=== PATIENT | female | born 1960 | race Two or more races ===

== ENCOUNTER 2018-10-27 00:14 | Inpatient (IN) | payer MEDICARE, OTHER ==
[~2018-10-27] VITALS: Ht 165.1 cm; Wt 86.2 kg
[2018-10-27 02:45] VITALS: BP 103/71
--- NOTE | 2018-10-27 02:45 | NUR ---
GPS ADMISSION NOTE, RECEIVED PATIENT FROM [facility]. PATIENT ARRIVED ON THIS UNIT AT 0245 VIA STRETCHER WITH 2 EMT ESCORTS. PATIENT ADMITTED ON A 5150 HOLD FOR DTS. PER HOLD OFFICERS RESPONDED TO A RADIO CALL OF A OVERDOSE. PATIENT STATED SHE TOOK 14 PILLS OF LUNESTA 30 MG TABS, SAID SHE IS TIRED OF HER LIFE, AND SHE WROTE A NOTE STATING I LOVE YOU AND F[employer]WELL. PATIENT IS PATIENT WAS UNABLE TO CONTRACT FOR SAFETY AT THAT TIME. THE 5150 WAS REVIEWED AND THE DOCUMENTATION IN THE 5150 HOLD APPEARS TO REFLECT THE PRESENTATION OF THE PATIENT. UPON FACE TO FACE ASSESSMENT PATIENT IS NOTED TO BEING ANXIOUS, DISHEVELED, DISORGANIZED, DEMANDING, COOPERATIVE, AND NEEDS REDIRECTION. PATIENT IS CURRENTLY LYING IN BED AWAKE, HAS NO S/S OR COMPLAINTS OF PAIN. PATIENT IS DISPLAYING NO S/S OF APPARENT DISTRESS. PATIENT BREATHING IS UNLABORED WITH EQUAL RISE AND FALL OF THE CHEST. PATIENT IS ALERT AND ORIENTATED X 4 ON ROOM AIR. PATIENT ASSISTED WITH TURING AND REPOSITIONING Q2HR AND PRN FOR COMFORT AND CIRCULATION. PATIENT HAS NO NEEDS AT THIS TIME. PATIENT DENIES SUICIDE IDEATIONS AND HOMICIDAL IDEATIONS AT THIS TIME. PATIENT ADVISED OF HER HOLD AND PATIENT RIGHTS BOOKLET GIVEN. PATIENT IS UNDER THE PSYCHIATRIC CARE OF DR. HERNANDEZ AND THE MEDICAL CARE OF DR PEMBERTON. PATIENT BELONGINGS WERE INVENTORIED AND CHECKED FOR CONTRABAND. ALL CONTRABAND REMOVED AND STORED IN PATIENT HALLWAY LOCKER. PATIENT ADVANCED DIRECTIVES PREFERENCE, IMMUNIZATIONS QUESTIONER, NECESSARY PAPERWORK COMPLETED. PATIENT REFUSED SKIN ASSESSMENT. PATIENT ORIENTATED TO ROOM, FLOOR, AND STAFF WITH ALL QUESTIONS ANSWERED. PATIENT EDUCATED ON THE USE OF THE CALL SKINENR. PATIENT BED SIDE RAILS ARE UP X 2 FOR SAFETY. PATIENT BED IS LOCKED, LOW AND I WILL CONTINUE TO MONITOR THIS PATIENT Q 15 MIN WITH THE HELP OF STAFF TO MAINTAIN SAFETY.
[2018-10-27] MEDS ORDERED: MAG HYDROX/AL HYDROX/SIMETH 30 ML UDC PO PRN (03:00)
[2018-10-27] MEDS ORDERED: TEMAZEPAM 7.5 MG CAPSULE PO PRN (03:00)
[2018-10-27] MEDS ORDERED: MAGNESIUM HYDROXIDE 30 ML UDC PO PRN (03:00)
[2018-10-27] MEDS ORDERED: ASCO250T6 PO (03:08)
[2018-10-27] MEDS ORDERED: CYAN100096 PO (03:08)
[2018-10-27] MEDS ORDERED: ATOR20TA PO (03:08)
[2018-10-27] MEDS ORDERED: DICL100G16 TP (03:08)
[2018-10-27] MEDS ORDERED: CHOL20004 PO (03:08)
[2018-10-27] MEDS ORDERED: EPIN0.3P3 IJ (03:08)
[2018-10-27] MEDS ORDERED: D-AM10TA2 PO (03:08)
[2018-10-27] MEDS ORDERED: ESZO3TAB27 PO (03:17)
[2018-10-27] MEDS ORDERED: LINA145C PO (03:17)
[2018-10-27] MEDS ORDERED: MEMA10TA PO (03:17)
[2018-10-27] MEDS ORDERED: MULT-213 PO (03:17)
[2018-10-27] MEDS ORDERED: IBUP-1957 PO (03:17)
[2018-10-27] MEDS ORDERED: MELA1TAB9 PO (03:17)
[2018-10-27] MEDS ORDERED: GABA-534 PO (03:17)
[2018-10-27] MEDS ORDERED: MORP15TA PO (03:17)
[2018-10-27] MEDS ORDERED: LAMO150T PO (03:17)
[2018-10-27] MEDS ORDERED: VORT10TA PO (03:22)
[2018-10-27] MEDS ORDERED: TRAZ-182 PO (03:22)
[2018-10-27] MEDS: LORAZEPAM 0.5 MG TABLET PO PRN ×2 (03:49→09:57)
--- NOTE | 2018-10-27 03:49 | NUR ---
GPS RN NOTE, PATIENT HAS A COMPLAINT OF FEELING ANXIOUS AND IS REQUESTING ATIVAN AT THIS TIME. PATIENT VITAL SIGNS ARE STABLE. GAVE ATIVAN 0.5 MG PO Q6HR PRN ORDERED. WILL REASSESS FOR ANXIETY AND I WILL CONTINUE TO MONITOR THIS PATIENT.
--- NOTE | 2018-10-27 03:53 | NUR ---
GPS RN NOTE, PATIENT HAS A COMPLAINT OF INDIGESTION AND IS REQUESTING MAALOX AT THIS TIME. PATIENT VITAL SIGNS ARE STABLE. GAVE MAALOX 30 ML PO Q4HR PRN ORDERED. WILL CONTINUE TO MONITOR.
[2018-10-27] MEDS ORDERED: IBUPROFEN 800 MG TABLET PO PRN (04:00)
[2018-10-27] MEDS: ACETAMINOPHEN 325 MG TABLET PO PRN ×4 (07:44→23:57)
--- NOTE | 2018-10-27 07:45 | NUR ---
GPS/RN TYLENOL 650 MG WAS GIVEN FOR PAIN REQUESTED
[2018-10-27 08:00] VITALS: BP 115/77
[2018-10-27] MEDS: CHOLECALCIFEROL 1,000 UNIT TABLET (VIT D3) PO SCH (09:00)
[2018-10-27] MEDS: NICOTINE PATCH (21MG) 21 MG PATCH.TD24 TD SCH (09:00)
[2018-10-27] MEDS: MULTIVIT W/MINERALS 1 TAB TABLET PO SCH (09:00)
[2018-10-27] MEDS: ASCORBIC ACID 500 MG TABLET PO SCH ×2 (09:00→17:00)
[2018-10-27] MEDS: CYANOCOBALAMIN 500 MCG TABLET PO SCH (09:00)
--- NOTE | 2018-10-27 09:56 | NUR ---
GPS/RN PT WAS DEMANDING HER HOME MEDS, EXPLAINED THAT MEDICAL DOCTOR GOING TO ASSESS AND TO REVIEW THE HOME MEDICATION LIST. PT BECOME IRRITABLE AND ACCUSATORY TOWARD NOTE KEEPER OF THE NOTE AND REFUSED TO TAKE AM MEDICATIONS. AM MEDS WERE WASTED THEY WERE OUT OF PACKAGING ALREADY. REPORT WAS MADE TO CHARGE NURSE WHO REASSIGNED THE PT TO KOURTNEY SALDIVAR
[2018-10-27] MEDS: MEMANTINE HCL 5 MG TABLET PO SCH ×2 (09:57→16:56)
[2018-10-27] MEDS: GABAPENTIN 300 MG CAPSULE PO SCH (09:57)
[2018-10-27] MEDS: ATORVASTATIN 10 MG TABLET PO SCH (09:57)
--- NOTE | 2018-10-27 10:02 | NUR ---
RN NOTE: ATIVAN PRN WAS GIVEN AT 10:00 DUE TO AGITATION
--- NOTE | 2018-10-27 12:04 | NUR ---
RN NOTE: PRN TYLENOL WAS GIVEN D/T HEADACHE. ALSO, PATIENT STATES SHE HAS BEEN CONSTIPATED X2 DAYS. TOOK MOM 10/26/18 AND FELT SICK. WILL ASK MD FOR ANOTHER PRN FOR CONSTIPATION. PRUNE JUICE GIVEN. WILL RE-ASSESS.
[2018-10-27] MEDS ORDERED: SENNOSIDES 8.6 MG TABLET PO ONE (13:00)
[2018-10-27] MEDS ORDERED: LORAZEPAM 1 MG TABLET PO PRN (15:00)
[2018-10-27 16:10] VITALS: BP 150/85
[2018-10-27] MEDS: LORAZEPAM 1 MG TABLET PO SCH ×2 (16:57→21:16)
--- NOTE | 2018-10-27 18:34 | NUR ---
RN NOTE: PATIENT STILL C/O HEADACHE. PRN TYLENOL GIVEN
[2018-10-27 20:00] VITALS: BP 113/74
[2018-10-27] MEDS: IBUPROFEN 400 MG TABLET PO PRN (20:43)
--- NOTE | 2018-10-27 20:43 | NUR ---
GPS RN NOTES: PATIENT COMPLAINED TO NURSE THAT SHE IS HAVING PAINS SHE HAS FIBROMYALGIA. SHE REQUESTED TO MORPHINE SULFATE 15MG TAB PO FOR SIAD PAIN. NURSE RELAYED PATIENT'S COMPLAINS TO LY PEMBERTON PATIENT ACCESS REPRESENTATIVE FOR [facility]- NOT ORDERED AT THIS TIME, PER LY, FIBROMYALGIA IS NOT TREATED WITH NARCOTICS, AND THAT MOTRIN THAT WAS PREVIOUSLY ORDERED SHOULD BE GIVEN INSTEAD. EXPLAINED TO PATIENT THE DOCTOR'S RESPONSE. WILL MONITOR PATIENT'S PAIN STATUS.
[2018-10-27] MEDS: SENNOSIDES 8.6 MG TABLET PO SCH (21:16)
[2018-10-27] MEDS: LamoTRIgine 25 MG TABLET PO SCH (21:17)
[2018-10-28] MEDS: IBUPROFEN 400 MG TABLET PO PRN ×3 (02:43→17:16)
--- NOTE | 2018-10-28 03:19 | NUR ---
GPS RN NOTE, PATIENT HAS COMPLAINT OF BILATERAL CALF PAIN AND LOWER BACK PAIN AT 10 OUT 10 ON THE PAIN SCALE AND IS REQUESTING MEDICATION AT THIS TIME. PAGED [facility] AND INFORMED LY JON OF MY FINDINGS. [facility] A 5% LIDOCAINE PATCH TP 12HOURS ON AND 12 HOURS OFF, TO BE APPLIED TO AFFECTED AREA. [facility] ALSO ORDERED NAPROXEN 375 MG PO BID. ALL ORDERS NOTED AND CARRIED OUT. WILL CONTINUE TO MONITOR THIS PATIENT.
[2018-10-28] MEDS: LIDOCAINE 5% (PATCH) 1 EA PATCH TP SCH (03:39)
[2018-10-28] MEDS: ACETAMINOPHEN 325 MG TABLET PO PRN ×2 (06:34→19:53)
[2018-10-28 07:02] LABS: BASOPHILS % (AUTO) 0.7 % (0.0-2.0); EOSINOPHILS % (AUTO) 2.3 % (0.0-6.0); HEMATOCRIT 37 % (33-45); HEMOGLOBIN 12.3 g/dL (11.5-14.8); LYMPHOCYTES # (AUTO) 1.4 /CMM (0.8-4.8); LYMPHOCYTES % (AUTO) 23.8 % (20.0-44.0); MEAN CORPUSCULAR HGB CONC 33 g/dl (31.0-36.0); MEAN CORPUSCULAR VOLUME 80 fL (82-100); MONOCYTES # (AUTO) 0.4 /CMM (0.1-1.30); MONOCYTES % (AUTO) 7.4 % (2.0-12.0); NEUTROPHILS # (AUTO) 3.8 /CMM (1.8-8.9); NEUTROPHILS % (AUTO) 65.8 % (43.0-81.0); PLATELET COUNT (AUTO) 195 /CMM (150-450); RED BLOOD CELL COUNT(AUTO) 4.69 MIL/uL (4.0-5.2); WHITE BLOOD COUNT (AUTO) 5.8 K/uL (4.3-11.0)
[2018-10-28 07:35] LABS: ALBUMIN 3.4 g/dL (3.4-5.0); BILIRUBIN,TOTAL 0.3 mg/dL (0.2-1.0); CALCIUM, SERUM 8.7 mg/dL (8.5-10.1); CREATININE 0.8 mg/dL (0.6-1.3); POTASSIUM 3.7 mmol/L (3.5-5.1)
[2018-10-28 07:37] LABS: CHOLESTEROL 99 mg/dL (<200); HDL CHOLESTEROL 44 mg/dL (40-60); LDL 44 mg/dL (0-99); TRIGLYCERIDES 55 mg/dL (30-150)
[2018-10-28 08:00] VITALS: BP 133/69
[2018-10-28] MEDS: DICLOFENAC SODIUM TP SCH ×4 (09:00→19:22)
[2018-10-28] MEDS: CHOLECALCIFEROL 1,000 UNIT TABLET (VIT D3) PO SCH (09:33)
[2018-10-28] MEDS: VENLAFAXINE 25 MG TABLET PO SCH (09:33)
[2018-10-28] MEDS: GABAPENTIN 300 MG CAPSULE PO SCH (09:33)
[2018-10-28] MEDS: CYANOCOBALAMIN 500 MCG TABLET PO SCH (09:34)
[2018-10-28] MEDS: MEMANTINE HCL 5 MG TABLET PO SCH ×2 (09:34→17:07)
[2018-10-28] MEDS: MULTIVIT W/MINERALS 1 TAB TABLET PO SCH (09:34)
[2018-10-28] MEDS: ASCORBIC ACID 500 MG TABLET PO SCH ×2 (09:34→17:07)
[2018-10-28] MEDS: ATORVASTATIN 10 MG TABLET PO SCH (09:35)
[2018-10-28] MEDS: LORAZEPAM 1 MG TABLET PO SCH ×3 (09:40→21:15)
[2018-10-28] MEDS: NICOTINE PATCH (21MG) 21 MG PATCH.TD24 TD SCH (09:40)
[2018-10-28] MEDS: NAPROXEN 375 MG TABLET.DR PO SCH ×2 (09:41→17:07)
--- NOTE | 2018-10-28 11:22 | NUR ---
Group Note: SW encouraged pt to attend group therapy on 10/28/18 at 9:30 discussing anger management for when they are in the hospital and for once they are discharged but pt unable to attend.
--- NOTE | 2018-10-28 12:05 | NUR ---
PASCALE called the pts , Caitlyn ([phone]) who stated that he was currently parking his car at [facility] because he was coming to visit the pt. PASCALE stated that she would discuss the pts discharge plan with him in person due to his preference.
--- NOTE | 2018-10-28 12:30 | NUR ---
PASCALE met with the pts , Caitlyn ([phone]), who informed her about all of the events leading up to this hospitalization. He stated that it was a misunderstanding and completely verified that the pts version of events were true. PASCALE went over the treatment plan and the initial discharge plan. PASCALE informed him that the pt would be discharged the following day per the pts psychiatrist, Dr. Serna.
[2018-10-28] MEDS ORDERED: DEXTROAMPHETAMINE 10 MG PO SCH (13:00)
--- NOTE | 2018-10-28 15:50 | NUR ---
Initial Discharge Plan: Pt currently resides in her home with her family located at [address] [place] [address], [facility] [address], [place] [address]; ([phone]). Per pt, she would like to return to her home and continue her appointments with her provider. SW will work with the pt and the MD regarding appropriate discharge planning. SW will form a safe and proper discharge.
[2018-10-28 16:00] VITALS: BP_SYST 112; BP_SYST 128; BP_DIAS 73; BP_DIAS 78
[2018-10-28] MEDS: LINZESS 290 MCG PO SCH (17:06)
[2018-10-28 19:35] VITALS: BP 116/66
[2018-10-28] MEDS: TRAZODONE 50 MG TABLET PO SCH ×2 (21:14→22:00)
[2018-10-28] MEDS: LamoTRIgine 25 MG TABLET PO SCH (21:15)
[2018-10-28] MEDS: SENNOSIDES 8.6 MG TABLET PO SCH (21:15)
[2018-10-29] MEDS: LIDOCAINE 5% (PATCH) 1 EA PATCH TP SCH (03:30)
[2018-10-29 08:00] VITALS: BP 127/66
[2018-10-29] MEDS: NICOTINE PATCH (21MG) 21 MG PATCH.TD24 TD SCH (08:27)
[2018-10-29] MEDS: VENLAFAXINE 25 MG TABLET PO SCH (08:27)
[2018-10-29] MEDS: ATORVASTATIN 10 MG TABLET PO SCH (08:28)
[2018-10-29] MEDS: LORAZEPAM 1 MG TABLET PO SCH (08:29)
[2018-10-29] MEDS: GABAPENTIN 300 MG CAPSULE PO SCH (08:29)
[2018-10-29] MEDS: MEMANTINE HCL 5 MG TABLET PO SCH (08:30)
[2018-10-29] MEDS: ASCORBIC ACID 500 MG TABLET PO SCH (08:31)
[2018-10-29] MEDS: CYANOCOBALAMIN 500 MCG TABLET PO SCH (08:31)
[2018-10-29] MEDS: CHOLECALCIFEROL 1,000 UNIT TABLET (VIT D3) PO SCH (08:31)
[2018-10-29] MEDS: MULTIVIT W/MINERALS 1 TAB TABLET PO SCH (08:31)
[2018-10-29] MEDS: LINZESS 290 MCG PO SCH (08:47)
[2018-10-29] MEDS: ACETAMINOPHEN 325 MG TABLET PO PRN (08:47)
--- NOTE | 2018-10-29 08:47 | NUR ---
RN NOTE: PATIENT C/O HEADACHE, PRN TYLENOL GIVEN.
[2018-10-29] MEDS: DICLOFENAC SODIUM TP SCH (08:58)
--- NOTE | 2018-10-29 08:58 | NUR ---
RN NOTE: UNABLE TO PULL NAPROXEN FROM THE [facility], NOTIFIED PHARMACY
[2018-10-29] MEDS: NAPROXEN 375 MG TABLET.DR PO SCH (09:00)
[2018-10-29] MEDS ORDERED: DEXTROAMPHETAMINE 10 MG PO SCH (09:00)
--- NOTE | 2018-10-29 10:06 | NUR ---
SW conducted a substance abuse intervention with the pt due to the pts attempted overdose on her sleeping medications.
--- NOTE | 2018-10-29 10:20 | NUR ---
PASCALE called the pts , Caitlyn ([phone]), and responded to his question on the voicemail and stated that the SW cannot provide a copy of the 5150 hold. He stated that he understands and that he just wanted to ask to see if it was a possibility.
--- NOTE | 2018-10-29 10:57 | NUR ---
EXECUTIVE SOUS CHEF NOTE: PATIENT IS A 58 YEAR OLD FEMALE DISCHARGED HOME TO [id number] [facility] [address] [facility] [id number] . PATIENT IS IN STABLE CONDITION, CALM AND COOPERATIVE WITH MEDICATION MANAGEMENT, COMPLIANT WITH PLAN OF CARE. PATIENT STILL HAS ANXIETY. BEHAVIOR IS CONTROLLED. DENIED SI/HI, AUDITORY OR VISUAL HALLUCINATIONS AT THE TIME OF DISCHARGE. DR. HERNANDEZ DC HOLD WITH DC ORDERS TO GO HOME ALONG WITH MED RECON. CATY ALSO AWARE OF THE DC AND MED RECON COMPLETE. EDUCATED PATIENT ABOUT AFTERCARE AND PROVIDED COPY WITH DC INSTRUCTIONS TO FOLLOW UP WITH PSYCH DR. FOSS [address] [facility] [id number] AND HOTEL MANAGER DR. ALEX [id number] [facility] [address] [facility] [id number] WITHIN 1 WEEK. RETURNED BELONGINGS TO PATIENT. PATIENT SIGNED DISCHARGE PAPERWORK. VSS. SKIN INTACT. NO SIGNS OF ACUTE DISTRESS NOTED. NO COMPLAINTS. PATIENT LEFT THE UNIT WITH AT 10:50.
--- NOTE | 2018-10-29 11:08 | NUR ---
RN NOTE: HAD SPOKEN TO ISAEL FROM THE PHARMACY AND SHE STATED SHE WOULD FIX THE ISSUE SO I CAN PULL NAPROXEN FROM [facility]. ISSUE WAS NEVER RESOLVED. PATIENT DIDNT GET HER 0900 NAPROXEN.
--- NOTE | 2018-10-29 12:32 | NUR ---
Discharge Note: Pt was discharged to her home [place] at [address] [facility], [place] [address]; ([phone]). Pts , Caitlyn ([phone]), picked the pt up around 11am. Upon discharge, the pt appeared to be in a euthymic mood and presented with a calm affect. Pt denied both suicidal and homicidal ideation as well as auditory and visual hallucinations. Pt was provided with three substance abuse referrals as well as smoking cessation referrals. Pt will be under the care of her psychiatrist, Dr. Bailey, located at [address] [place] [address]; , and a fax was sent to: ([phone]). Pt will be under the care of her hedis abstractor, Dr. [place], [place] [address] [facility] [address], [place] [address]; . Substance Abuse Referrals [facility] [address] [facility] [place] [address] Tel. [facility] [address] [place] Provider Mental Health Treatment Tele-dermatology HIV Services Telemedicine Services [place] [address] [place] [address] [facility] [address] [place] [address] Smoking Cessation Referrals [facility] [id number]-[email or web address] [employer] [phone] Pt will call into a phone meeting ([phone]) tomorrow 10/30/18 at 12pm for 3rd Step Prayer.
== END 2018-10-29 10:50 | disposition home or self-care (01) | DRG 885 ==
LOC: GPS 02:19
PROVIDERS: ADMIT Psychiatry & Neurology Psychiatry
DX: F31.30 Bipolar disorder, current episode depressed, mild or moderate severity, unspecified (principal); R45.851 Suicidal ideations; G40.909 Epilepsy, unspecified, not intractable, without status epilepticus; M79.7 Fibromyalgia; E78.5 Hyperlipidemia, unspecified; I69.30 Unspecified sequelae of cerebral infarction; M81.0 Age-related osteoporosis without current pathological fracture; G43.909 Migraine, unspecified, not intractable, without status migrainosus; K59.00 Constipation, unspecified
CPT/HCPCS: 36415; 80053-TC; 80061-TC; 85025-TC; 87081-TC; 97116-TC; 97530-TC